=== PATIENT | female | born 2005 | race Two or more races ===

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

== ENCOUNTER 2024-01-19 14:10 | Emergency (ER) | payer OTHER ==
[~2024-01-19] VITALS: Ht 162.6 cm; Wt 44.0 kg
[~2024-01-19 14:10] MED LIST: MAG355OR21 MT; ONDA4TAB50 MT
[2024-01-19 14:13] VITALS: O2SAT 100
[2024-01-19 14:20] VITALS: BP 111/77; PULSE 79; RESP 16; TEMP 98; O2SAT 100
[2024-01-19] MEDS: IBUPROFEN 600MG TABLET PO ONE (16:09)
[2024-01-19] MEDS ORDERED: IBUP-2028 MT (17:33)
== END 2024-01-19 17:50 | disposition home or self-care (01) ==
LOC: ER 14:10
DX: S70.01XA Contusion of right hip, initial encounter (principal); W18.39XA Other fall on same level, initial encounter; Y93.89 Activity, other specified; Y92.89 Other specified places as the place of occurrence of the external cause; Y99.8 Other external cause status
CPT/HCPCS: 73502; 81025; 99283

== ENCOUNTER 2024-12-27 00:14 | Emergency (ER) | payer OTHER ==
[~2024-12-27] VITALS: Ht 167.6 cm; Wt 52.0 kg
[~2024-12-27 00:14] MED LIST changes: +IBUP-2028 MT
[2024-12-27 00:25] VITALS: O2SAT 98
[2024-12-27 00:47] VITALS: BP 105/70; PULSE 82; RESP 16; TEMP 36.8; O2SAT 98
== END 2024-12-27 00:49 | disposition home or self-care (01) ==
LOC: ER 00:14
DX: R51.9 Headache, unspecified (principal); V43.52XA Car driver injured in collision with other type car in traffic accident, initial encounter; Y93.89 Activity, other specified; Y92.410 Unspecified street and highway as the place of occurrence of the external cause; Y99.8 Other external cause status
CPT/HCPCS: 99282